=== PATIENT | female | born 1985 | race Hispanic/Latino ===

== ENCOUNTER 2024-01-15 07:42 | Emergency (ER) | payer MEDICAID, SELFPAY ==
[2024-01-15 07:43] VITALS: BP 126/92; PULSE 90; RESP 16; TEMP 36.6; O2SAT 100; BMI 36.6
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
--- NOTE | 2024-01-15 07:52 | EX.ED.UPPERE ---
HPI History of Present Illness Chief Complaint: Upper Extremity Injury Narrative Narrative: 38-year-old female who denies significant past medical history, [id number], presents with injury to her right elbow and her right wrist that she sustained yesterday. She states she was moving things, carrying a box when she tripped over the stair and fell. She denies hitting her head or loss of consciousness, no neck pain. While she states she hit both knees and both arms, really the only place she is having the most trouble is her right elbow. She cannot fully flex it and she has pain with movement. She can still move her right wrist in all her fingers but has pain on the distal ulnar area that is tender. She has been taking ibuprofen and she tried to take 2 melatonin to help her sleep but could not. She presents to the emergency department for the pain in her right elbow and her right wrist, and denies other injury. PFS PFS Home Medications ?Medication ?Instructions ?Recorded ?Last Taken ?Type etodolac 300 mg capsule 300 mg PO TIDCM ##30 08/19/15 Unknown Rx penicillin V potassium 500 mg 500 mg PO 4X/DAY #40 tabs 08/19/15 Unknown Rx tablet hydrocodone-acetaminophen 5-325mg 1 tab PO Q6H PRN PRN Pain 3 days 01/15/24 Unknown Rx 5mg-325mg #12 TABLETS Allergy/AdvReac Type Severity Reaction Status Date / Time No Known Allergies Allergy Verified 01/15/24 07:45 Social History Smoking Status: Current every day smoker tobacco type: cigarettes ROS ROS ED ROS Narrative Constitutional: No fever, no chills. HEENT: No sore throat. No neck pain. No loss of vision. No rhinorrhea. Cardiovascular: No chest pain. No palpitations. No pedal edema. Respiratory: No cough, no shortness of breath. Abdominal: No abdominal pain. No nausea. No vomiting. Genitourinary: No dysuria. No hematuria. Musculoskeletal: No myalgias. Right elbow pain, across the front mainly, right distal ulnar/wrist pain Neurologic: No headaches. No dizziness. No lightheadedness. Skin: No rash. No change in color. Psychiatric: No depression. No anxiety. EXAM Physical Exam Narrative Exam Narrative: GCS 15. ABCs intact. Cardiovascular examination reveals a regular rate and rhythm. Lungs are clear to auscultation bilaterally. Abdomen soft nontender with normoactive bowel sounds. There is mild tenderness to palpation diffusely across the right antecubital fossa, no palpable biceps tendon deficit. No olecranon tenderness. Flexion extension at right elbow and right wrist intact. Mild proximal radial head tenderness, no crepitance. Positive pain with supination and pronation of forearm she has mild amount of tenderness on the distal ulnar area. She is neuro vastly intact distal to the wrist, able to oppose thumb, finger abduction and abduction intact. Palpable radial pulse, right. Const Vital Signs: 01/15/24 07:43 Temperature 98 F Temperature Source Temporal Pulse Rate 90 Respiratory Rate 16 Blood Pressure 126/92 H Blood Pressure Mean 103 Pulse Ox 100 Oxygen Delivery Method Room Air MDM MDM MDM Narrative Medical decision making narrative: Differential diagnosis includes but not limited to right elbow contusion versus sprain versus fracture as well as right wrist distal ulnar fracture versus contusion. There is no overt ecchymosis. She has already taken ibuprofen, and declines ice pack. X-rays of the right elbow interpreted by myself independently demonstrate anterior and posterior fat pad sign with fracture of the radial head. X-rays of the right wrist in 3 views interpreted by myself independently shows no evidence of acute fracture. I reviewed the radiology reports which confirm my independent interpretations of the x-ray of the right elbow and comments on nondisplaced fracture of the radial head with a right elbow effusion. Additionally, there is no evidence of fracture on the radiology report of the right wrist, but she was placed in a sugar-tong splint regardless which will immobilize that area as well. Patient was placed in a well-padded Ortho-Glass sugar-tong splint using 4 x 30 inch Ortho-Glass. She was given a sling for comfort. She was written a prescription for Orla tablets #12 and referred to orthopedics on-call, Dr. Mohsen Pena to follow-up in the next 3 to 5 days / 1 week. She will continue ice and elevation at home. I feel she can be discharged safely home with follow-up. Return instructions to the emergency department were reviewed. Disposition is discharged home in stable condition. Procedures Upper Extremity Splints Upper Extremity Splint: Orthoglass (Well-padded) and - (Sugar-tong using 4 inch x 30 inch Ortho-Glass.) Splint Fabrication: Fabricated Location: Right Discharge Plan Triage Chief Complaint: Upper Extremity Injury ED Provider: Umang Patel Dx/Rx/DC Orders Clinical Impression: Fracture of head of right radius, Contusion of right wrist, Fall Instructions: ED Radial Head Fracture, ED Wrist Sprain Prescriptions: New hydrocodone-acetaminophen 5-325 mg tablet 1 tab PO Q6H PRN PRN (Reason: Pain) 3 Days Qty: 12 0RF No Action etodolac 300 MG capsule 300 mg PO TIDCM Qty: 30 0RF Rx Instructions: with food penicillin V potassium 500 MG tablet 500 mg PO 4X/DAY Qty: 40 0RF Primary Care Provider: Jorge Luis Houser Referrals: Jorge Luis Houser MD [Primary Care Provider] - Mohsen Pena MD [Med Staff - Active Staff] - 3-5 Days Activity Restrictions/Additional Instructions: Follow-up with orthopedics in 3 to 5 days/within the next week. Do not get splint wet. Return with increased pain, new or worsening symptoms. Print Language: Guamanian Disposition Disposition: Home, Self Care
--- NOTE | 2024-01-15 08:05 | RAD_ITS ---
HISTORY: Trauma, pain. TECHNIQUE: XR Elbow Min 3 Views. COMPARISON: None. FINDINGS: BONES : Nondisplaced intra-articular fracture of the radial head. Mineralization unremarkable. JOINTS: No dislocation. Joint spaces maintained. Joint effusion with elevation of the fat pads. RAD/Elbow min 3 Views IMPRESSION: Nondisplaced radial head fracture. Right elbow joint effusion. Electronically Signed: Jolene Clarke MD at 8:48 EDT ,
[2024-01-15 09:01] VITALS: BP 122/87; PULSE 82; RESP 19; TEMP 36.6; O2SAT 99
== END 2024-01-15 09:14 | disposition home or self-care (01) ==
PROVIDERS: Emergency Provider Emergency Medicine; PCP Family Medicine; Visit Provider Emergency Medicine
DX: S52.124A Nondisplaced fracture of head of right radius, initial encounter for closed fracture (principal); F17.210 Nicotine dependence, cigarettes, uncomplicated; W10.9XXA Fall (on) (from) unspecified stairs and steps, initial encounter; Y93.89 Activity, other specified
CPT/HCPCS: 29125; 73080; 73110; 99282

== ENCOUNTER 2024-01-31 13:54 | Outpatient (RCR) | payer SELFPAY ==
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
--- NOTE | 2024-04-11 18:03 | HP.OT.NRP ---
Patient Information Patient Information: URIEL HICKMAN was seen in my office for initial evaluation on 01/31/24. The following Plan of Care was established for this patient: POC Established Initial Frequency: 1x/Week Initial Duration: 4-6 Weeks Anticipated Interventions Anticipated Interventions: A/AAROM/PROM, Strengthening, Edema Control, Triggerpoint Release, Modalities, Joint Protection/Energy Conservation, Education re Diagnosis and Home Program Last Seen Last Seen: This patient was last seen in our office 02/07/24. Pertinent comments regarding their Occupational therapy will appear below: This 39 year old female seen for L wrist contusion as well as radial head fx. pt seen for evaluation and then one additional visit before no longer returning for services. discharge at this time due to lapse in time of services. At this point I will be discontinuing this patient from occupational therapy. I would be happy to see this patient again in the future if found appropriate by the physician. Thank you! Viri Farah
== END 2024-01-31 19:00 | disposition home or self-care (01) ==
LOC: OT 13:54
PROVIDERS: PCP Family Medicine; Referring Provider Orthopaedic Surgery Sports Medicine; Visit Provider Orthopaedic Surgery Sports Medicine
DX: S60.211D Contusion of right wrist, subsequent encounter (principal); S52.121D Displaced fracture of head of right radius, subsequent encounter for closed fracture with routine healing
CPT/HCPCS: 97165; 97530